=== PATIENT | male | born 1990 | race Caucasian/White ===

== ENCOUNTER 2018-03-19 18:45 | Emergency (ER) | payer BC ==
[2018-03-19 19:00] VITALS: RESP 18
--- NOTE | 2018-03-19 19:35 | ED ---
Male Urogenital HPI - General Chief complaint: Urogenital Stated complaint: Swollen Testicle Time Seen by Provider: 03/19/18 19:06 Source: patient Mode of arrival: ambulatory Limitations: no limitations - History of Present Illness Initial comments: Patient is a 27-year-old male presenting for scrotal mass. The patient states that for the last 6 months, he has been having increased swelling in the left testicle but function has been observed in the sense that he is still able to urinate just fine and can still ejaculate. He states that he has not had any fevers or chills as well as discharge from penis and that the mass does not hurt. He was seen in urgent care today and was sent here for further evaluation. - Related Data Home Medications Medication Instructions Recorded Confirmed No Known Home Medications [No 03/19/18 03/19/18 Known Home Medications] Allergies Allergy/AdvReac Type Severity Reaction Status Date / Time No Known Allergies Allergy Verified 03/19/18 19:07 Review of Systems ROS Statement: Those systems with pertinent positive or pertinent negative responses have been documented in the HPI. Constitutional: Negative for chills, fatigue and fever. HENT: Negative for congestion. Respiratory: Negative for chest tightness, shortness of breath and wheezing. Negative for cough Cardiovascular: Negative for chest pain and palpitations. Gastrointestinal: Negative for abdominal pain. Negative for abdominal distention , diarrhea, nausea and vomiting. Genitourinary: Negative for dysuria. Positive for scrotal mass Musculoskeletal: Negative for back pain, neck pain and neck stiffness. Skin: Negative for color change. Neurological: Negative for dizziness, speech difficulty, weakness and light- headedness. Psychiatric/Behavioral: Negative for agitation and confusion. The patient is not nervous/anxious. ROS Other: All systems not noted in ROS Statement are negative. Past Medical History Past Medical History: No Reported History History of Any Multi-Drug Resistant Organisms: None Reported Past Surgical History: No Surgical Hx Reported Past Psychological History: No Psychological Hx Reported Smoking Status: Never smoker Past Alcohol Use History: None Reported Past Drug Use History: None Reported General Exam - General Exam Comments Initial Comments: Constitutional: Pt is oriented to person, place, and time. Pt appears well- developed and well-nourished. No distress. HENT: Head: Normocephalic and atraumatic. Eyes: EOM are normal. Neck: Normal range of motion. Neck supple. Cardiovascular: Normal rate, regular rhythm, S1 normal, S2 normal and normal heart sounds. Exam reveals no gallop and no friction rub. No murmur heard. Pulmonary/Chest: Effort normal and breath sounds normal. No tachypnea and no bradypnea. No respiratory distress. No wheezes or rales noted. Abdominal: Soft. Bowel sounds are normal. Pt exhibits no shifting dullness, no distension, no pulsatile liver, no fluid wave, no abdominal bruit and no ascites. There is no tenderness. There is no rigidity, no rebound, no guarding, no tenderness at McBurney's point and negative Lucas's sign. Musculoskeletal: Normal range of motion. : Right testicle normal in size with no palpable mass. Left testicle very enlarged size of a grapefruit. Testicle is nontender to palpation and firm. Neurological: Pt is alert and oriented to person, place, and time. No cranial nerve deficit. Skin: Skin is warm and dry. No rash noted. Pt is not diaphoretic. No erythema. No pallor. Psychiatric: Pt has a normal mood and affect. Pt behavior is normal. Thought content normal. Limitations: no limitations Course Vital Signs 03/19/18 18:57 Temperature 97.6 F Pulse Rate 124 H Respiratory 18 Rate Blood Pressure 134/87 O2 Sat by Pulse 99 Oximetry - Reevaluation(s) Reevaluation #1: 03/19/18 20:04 Patient is refusing laboratory studies at this time. Medical Decision Making - Medical Decision Making Ultrasound of the scrotum was performed and left testicle was enlarged at 9.4 x 9.3 x 8.3 cm. Scrotum was also noted to be grossly enlarged with the left testicle heterogeneous in appearance with no normal-appearing tissue in mass like area noted. There is complex enlargement that could correlate to a tumor. Patient also declined any laboratory studies and case is discussed briefly with urology and it was recommended that the patient could follow-up as an outpatient. He was also explained to the patient that foregoing laboratory studies could be detrimental in that the evaluation could not be completely thorough. It is also noted that the patient's heart rate normalized prior to discharge. Patient expressed understanding and stated that he still did not want to do labs. Explained all diagnostic test results and that we will discharge the patient home and patient is to follow up with PCP/urology in 1-2 days and return to the ED if symptoms worsen. Pt is agreeable to plan. - Lab Data Lab Results 03/19/18 Range/Units 20:08 Urine Color Yellow Urine Appearance Clear (Clear) Urine pH 5.5 (5.0-8.0) Ur Specific [place] 1.023 (1.001-1.035) Urine Protein Negative (Negative) Urine Glucose (UA) Negative (Negative) Urine Ketones Trace H (Negative) Urine Blood Negative (Negative) Urine Nitrite Negative (Negative) Urine Bilirubin Negative (Negative) Urine Urobilinogen <2.0 (<2.0) mg/dL Ur Leukocyte Esterase Negative (Negative) Disposition Clinical Impression: Testicular mass Disposition: HOME SELF-CARE Condition: Good Instructions: Testicle Pain (ED) Is patient prescribed a controlled substance at d/c from ED?: No Referrals: Ariel Cornell MD [Primary Care Provider] - 1-2 days Bonifacio Palafox MD [STAFF PHYSICIAN] - 1-2 days Time of Disposition: 21:43
[2018-03-19 20:18] LABS: Appearance,Urine Clear (Clear); Bilirubin,Urine Negative (Negative); Blood,Urine Negative (Negative); Color,Urine Yellow; Glucose,Urine (UA) Negative (Negative); Ketones,Urine Trace (Negative); Leukocyte Esterase,Urine Negative (Negative); Nitrite,Urine Negative (Negative); PH, Urine 5.5 (5.0-8.0); Protein,Urine Negative (Negative); Specific Gravity,Urine 1.023 (1.001-1.035); Urobilinogen,Urine <2.0 mg/dL (<2.0)
--- NOTE | 2018-03-19 20:43 | US ---
EXAMINATION TYPE: US scrotum with doppler. Grayscale and color Doppler Duplex imaging performed of t aaron scrotum. DATE OF EXAM: 03/19/2018 COMPARISON: NONE CLINICAL HISTORY: Left scrotal swelling for 6+ months, no obvious injury patient can remember and has no pain, no discoloration, no fever. EXAM MEASUREMENTS: TESTICLES: Right Testicle: 4.4 x 3.3 x 2.3 cm Left Testicle: 9.4 x 9.3 x 8.3 cm EPIDIDYMIS HEAD: Right Epididymis: 1.3 cm Left Epididymis: unable to discern Doppler performed to assess for testicular vascularity; good bilateral color flow and waveforms are s een. There is no evidence of testicular torsion. Presence of hydroceles: yes, on the left Presence of varicoceles: no grossly enlarged left testicle is heterogeneous in appearance with no normal appearing tissue and m asslike areas noted. Unable to discern left epididymis. IMPRESSION: Enlarged left testicle could relate to the presence of a tumor. Complex enlargement. No e vidence of testicular torsion. Mild left hydrocele.
[2018-03-19 22:03] VITALS: BP 135/84; PULSE 100; TEMP 98.5
== END 2018-03-19 22:03 | disposition home or self-care (01) ==
LOC: EC 18:45
DX: N44.8 Other noninflammatory disorders of the testis (principal); N50.89 Other specified disorders of the male genital organs
CPT/HCPCS: 76870; 81003; 93975; 99284